=== PATIENT | male | born 1935 | race African-American/Black ===

== ENCOUNTER 2019-03-19 08:40 | Observation (INO) | payer OTHER ==
[~2019-03-19] VITALS: Ht 182.9 cm; Wt 52.6 kg
[~2019-03-19 08:40] MED LIST: CIPROFLOXACIN500 MG PO; CLARITIN10 MG PO; COMINH INH; FLO4 PO; LAC PO; PYR100 PO; QVAR0.04 MG/Ac IH
[2019-03-19 08:56] VITALS: Ht 182.9 cm; Wt 52.6 kg
--- NOTE | 2019-03-19 10:08 | NUR ---
PT AWARE OF NEEDED URINE SPECIMEN. PT AMBULATED TO BR WITH STEADY GAIT W/ FAMILY MEMEBER AT PT'S SIDE TO PREVENT FALL.
[2019-03-19 10:21] LABS: ALBUMIN 3.1 g/dL (3.4-5.0); ALKALINE PHOSPHATASE 66 U/L (46-116); ALT/SGPT 25 U/L (16-63); AST/SGOT 28 U/L (15-37); BILIRUBIN TOTAL 0.8 mg/dL (0.20-1.00); CALCIUM 9.3 mg/dL (8.5-10.1); CHLORIDE SERUM 106 mmol/L (98-107); CREATININE SERUM 1.2 mg/dL (0.7-1.3); GLUCOSE SERUM 95 mg/dL (74-106); POTASSIUM SERUM 4.7 mmol/L (3.5-5.1); SODIUM SERUM 141 mmol/L (136-145); TOTAL PROTEIN, SERUM 6.8 g/dL (6.4-8.2)
[2019-03-19 11:32] LABS: BAND NEUTROPHIL 4 % (0-10); BASOPHIL 0 % (0-2); MONOCYTE 3 % (0-7); SEGMENTED NEUTROPHILS 86 % (37-75)
[2019-03-19 11:33] LABS: PLATELET MORPHOLOGY PLATELETS DECREASED; rbc morphology (normal/abnorm) ABNORMAL (NORMAL)
[2019-03-19 11:54] LABS: PLATELET COUNT 173 x10^3mcL (130-400)
[2019-03-19 11:57] LABS: RED CELL DISTRIBUTION WIDTH 14.8 % (11.5-14.5)
--- NOTE | 2019-03-19 11:58 | NUR ---
PT RESTING COMFORTABLY IN BED, BREATHING EASY AND UNLABORED. NO CHANGE IN STATUS. WILL CONTINUE TO MONITOR.
[2019-03-19 12:02] LABS: UA SPECIFIC GRAVITY 1.015 (1.005-1.035)
[2019-03-19 12:03] LABS: microscopic required? YES; urine erythrocyte TRACE (NEGATIVE)
--- NOTE | 2019-03-19 14:46 | NUR ---
PT ADMITTED (TELE, ROOM#250B) - REPORT CALLED TO KHALIDA HOWARD. OPPORTUNITY GIVEN TO ASK QUESTIONS. PT BEING TRANSPORTED TO FLOOR BY RN AT THIS TIME. NO CHANGE IN STATUS. PT AAOX4, VSS, BREATHING EASY AND UNLABORED, SPEAKS IN FULL CLEAR SENTENCES, AND IN NO OBVIOUS DISTRESS.
[2019-03-19 15:21] VITALS: BP 109/70
--- NOTE | 2019-03-19 15:34 | NUR ---
RECEIVED PT FROM ER, PT ADMIT FOR SEPSIS, LEUKOCYTOSIS, PT IS A/O X4, VERBAL RESPONSIVE, SLOW SPEECH, LUNG SOUND CLEAR BILATERAL, NO COUGH, NO SOB. PT IS ON TELE 15, NSR, DENY ANY CHEST PAIN OR DISCOMFORT, BOWEL SOUND PRESENT ALL 4 QUADRANTS ,NO DISTENTION, NO TENDER. PEDAL PULSE PRESENT BOTH FEET, NO EDEMA, IV AT RIGHT AC, NO LEAKING, NO INFILTRATION. PT IS ABLE TO AMBULATE WITH ASSIST. BUT C/O GENERALIZED WEAKNESS SINCE YESTERDAY. ALL ADLS ASSIST, ALL NEED MET, CALL LIGHT IN REACH, WILL CONTINUE TO MONITOR.
[2019-03-19 16:06] VITALS: BP 109/70
--- NOTE | 2019-03-19 18:36 | NUR ---
PATIENT IS RESTING IN BED AND STATES FEELING LITTLE BIT BETTER AND WANTED TO REST MORE. IVF IS INFUSING AT 80ML/HR VIA IV SITE AT [facility].
--- NOTE | 2019-03-19 20:00 | NUR ---
PT A/A/O X4. DENIES DIZZINESS AND HEADACHE. BREATH SOUNDS CLEAR. BREATHING EVEN AND UNLABORED ON ROOM AIR. DENIES CHEST PAIN AND PRESSURE. BOWEL SOUNDS ACTIVE. NO C/O N/V AND ABD PAIN. IV INTACT ON THE RAC INFUSING WITH NS AT 80 ML/HR. MADE PT COMFORTABLE. PLACED CALL LIGHT WITH IN REACH. WILL CONTINUE TO MONITOR.
[2019-03-19 20:30] VITALS: BP 104/63
--- NOTE | 2019-03-19 20:30 | NUR ---
PT C/O HEADACHE. GAVE PT TYLENOL PO. PT TOLERATED IT WELL. WILL CONTINUE TO MONITOR.
--- NOTE | 2019-03-20 01:43 | NUR ---
PT COMPLAINING OF BACKPAIN AND REQUESTING TYLENOL. GIVEN TYLENOL 65OMG ORDERED PO. CARD READER SHOWS SHORT RUN OF SVT VS PAT. PT AWAKE DUE TO BACKPAIN. DENIES ANY CHEST PAIN. MARIAJOSE 118/67, HR 79/MIN, RR 20 /MIN. CALL LIGHT WITHIN REACHED. WILL MONITOR CLOSELY.
--- NOTE | 2019-03-20 01:48 | NUR ---
PT ASYMPTOMATIC. CALL LIGHT WITHIN REACHED.
[2019-03-20 05:30] VITALS: BP 124/64
--- NOTE | 2019-03-20 06:44 | NUR ---
PT RESTING WITH EYES CLOSED. EASILY AROUSABLE WITH VERBAL STIMULI. NO C/O PAIN THUS FAR. NO FEVER NOTED, TEMP 97.4. IV INTACT AND INFUSING ORDERED. MADE PT COMFORTABLE. WILL ENDORSE TO THE AM NURSE ACCORDINGLY.
--- NOTE | 2019-03-20 07:05 | NUR ---
RECIECED PT RESTING IN BED WITH NO C/O PAIN OR DISTRESS. A/OX4 WITH NO KOLB OR DIZZINESS. TELE#15 CONNECTED TO PT, DENIES ANY CP OR PRESSURE. LUNGS CTAB, NO SOB. NS 80ML/HR RUNNING IN RAC, IV CDI AND PATENT. SAFERY PRECAUTIONS IN PLACE, CALL LIGHT WITHIN REACH, WILL MONITOR.
--- NOTE | 2019-03-20 08:36 | NUR ---
TYLENOL GIVEN PER EMAR FOR C/O 09/04 BACK PAIN , WILL REASSESS
[2019-03-20 08:45] VITALS: BP 122/78
[2019-03-20 11:55] VITALS: BP 131/80; BP 132/78
--- NOTE | 2019-03-20 12:47 | NUR ---
TYLENOL GIVEN PER EMAR FOR C/O 6/ KOLB, WILL REASSESS.
[2019-03-20 13:15] LABS: BASOPHIL % 0.2 % (0-2); PLATELET COUNT 166 x10^3mcL (130-400)
[2019-03-20 13:23] LABS: RED CELL DISTRIBUTION WIDTH 15.1 % (11.5-14.5)
[2019-03-20 15:07] VITALS: BP 131/80
[2019-03-20 15:51] LABS: CARBON DIOXIDE 30.5 mmol/L (21-32); CHLORIDE SERUM 104 mmol/L (98-107); GLUCOSE SERUM 76 mg/dL (74-106); POTASSIUM SERUM 4.1 mmol/L (3.5-5.1); SODIUM SERUM 140 mmol/L (136-145)
[2019-03-20 15:52] LABS: CALCIUM 9.7 mg/dL (8.5-10.1)
--- NOTE | 2019-03-20 16:15 | NUR ---
PT STABLE TO DISCHARGE PER MD ORDER. ALL DISCHARGFE EDUCATION, INSTRUCTIONS, AND PRESCRIPTIONS GIVEN TO PT, PT VERBALIZES UNDERSTANDING. D/C FORMS SIGNED BY PT. ID BAND REMOVED AND IV REMOVED WITH CATHETER INTACT. NO REDNESS OR INFLAMMATION NOTED TO SITE. PT ESCORTED DOWN TO LOBBY VIA WC BY DRIER UNLOADER AND FAMILY AT SIDE. ALL PERSONAL BELONGINGS IN HAND.
== END 2019-03-20 16:59 | disposition home or self-care (01) ==
LOC: ED 08:40 → DU 13:48
PROVIDERS: Emergency Medicine; ADMIT Internal Medicine Pulmonary Disease
DX: R50.9 Fever, unspecified (principal); N40.0 Benign prostatic hyperplasia without lower urinary tract symptoms; D86.9 Sarcoidosis, unspecified; Z86.73 Personal history of transient ischemic attack (TIA), and cerebral infarction without residual deficits; Z23 Encounter for immunization
CPT/HCPCS: 87804; 90732; 97116-GP; G0378; J0456; J0696; J7030; J7060; Q0092

== ENCOUNTER 2019-03-25 07:45 | Inpatient (IN) | payer OTHER ==
[~2019-03-25] VITALS: Ht 180.3 cm; Wt 52.0 kg
[2019-03-25 07:51] VITALS: Ht 180.3 cm; Wt 52.0 kg
[2019-03-25 08:50] LABS: BASOPHIL % 0.4 % (0-2); PLATELET COUNT 278 x10^3mcL (130-400); RED CELL DISTRIBUTION WIDTH 14.4 % (11.5-14.5)
[2019-03-25 09:00] LABS: CALCIUM 10.4 mg/dL (8.5-10.1); CHLORIDE SERUM 103 mmol/L (98-107); CREATININE SERUM 0.9 mg/dL (0.7-1.3); GLUCOSE SERUM 86 mg/dL (74-106); POTASSIUM SERUM 4.6 mmol/L (3.5-5.1); SODIUM SERUM 139 mmol/L (136-145)
[2019-03-25 09:05] LABS: ALBUMIN 3.1 g/dL (3.4-5.0); ALKALINE PHOSPHATASE 81 U/L (46-116); ALT/SGPT 39 U/L (16-63); AST/SGOT 32 U/L (15-37); BILIRUBIN TOTAL 0.7 mg/dL (0.20-1.00); LIPASE 104 IU/L (73-393); TOTAL PROTEIN, SERUM 8.4 g/dL (6.4-8.2)
[2019-03-25 10:12] LABS: microscopic required? NO
[2019-03-25 10:17] LABS: UA SPECIFIC GRAVITY 1.015 (1.005-1.035); urine erythrocyte NEGATIVE (NEGATIVE)
[2019-03-25 15:52] VITALS: BP 115/64
[2019-03-25 17:10] VITALS: BP 108/69
[2019-03-25 18:06] VITALS: BP 115/64
[2019-03-25 21:32] VITALS: BP 104/63
[2019-03-26 06:09] VITALS: BP 105/67
[2019-03-26 06:56] LABS: BASOPHIL % 0.2 % (0-2); PLATELET COUNT 290 x10^3mcL (130-400)
[2019-03-26 07:15] LABS: CALCIUM 9.6 mg/dL (8.5-10.1); CARBON DIOXIDE 28.5 mmol/L (21-32); CHLORIDE SERUM 104 mmol/L (98-107); GLUCOSE SERUM 81 mg/dL (74-106); POTASSIUM SERUM 4.7 mmol/L (3.5-5.1); SODIUM SERUM 140 mmol/L (136-145)
[2019-03-26 07:38] VITALS: BP 121/66
[2019-03-26 07:45] LABS: RED CELL DISTRIBUTION WIDTH 14.6 % (11.5-14.5)
[2019-03-26 11:54] VITALS: BP 112/66
[2019-03-26] MEDS ORDERED: FLE10 PO ×2 (14:06→14:08)
[2019-03-26] MEDS ORDERED: NOR10T PO (14:07)
[2019-03-26 16:07] VITALS: BP 101/62
[2019-03-26 19:31] VITALS: BP 107/58
[2019-03-27 04:34] VITALS: BP 112/69
[2019-03-27 06:26] LABS: CALCIUM 9.3 mg/dL (8.5-10.1); CARBON DIOXIDE 29.5 mmol/L (21-32); CHLORIDE SERUM 103 mmol/L (98-107); CREATININE SERUM 0.8 mg/dL (0.7-1.3); GLUCOSE SERUM 84 mg/dL (74-106); POTASSIUM SERUM 4.3 mmol/L (3.5-5.1); SODIUM SERUM 139 mmol/L (136-145)
[2019-03-27 08:00] VITALS: BP 115/74
[2019-03-27 12:30] VITALS: BP 115/74
== END 2019-03-27 14:32 | disposition home or self-care (01) | DRG 552 ==
LOC: ED 07:45 → DU 13:29
PROVIDERS: Specialist; ADMIT Internal Medicine Pulmonary Disease
DX: M51.36 Other intervertebral disc degeneration, lumbar region (principal); J44.9 Chronic obstructive pulmonary disease, unspecified; G35 Multiple sclerosis; D86.9 Sarcoidosis, unspecified; N40.0 Benign prostatic hyperplasia without lower urinary tract symptoms; Z86.73 Personal history of transient ischemic attack (TIA), and cerebral infarction without residual deficits
CPT/HCPCS: 83880; 97110-GP; 97116-GP; 97530-GP; G0378; J1644; J1885; J2270; J2405; J7620; J7626

== ENCOUNTER 2019-04-04 16:50 | Emergency (ER) | payer OTHER ==
[~2019-04-04] VITALS: Ht 177.8 cm; Wt 59.0 kg
[~2019-04-04 16:50] MED LIST changes: +FLE10 PO; +NOR10T PO
[2019-04-04 17:12] VITALS: Ht 177.8 cm; Wt 59.0 kg
[2019-04-04 17:25] LABS: microscopic required? NO
[2019-04-04 17:36] LABS: UA SPECIFIC GRAVITY <=1.005 (1.005-1.035); urine erythrocyte NEGATIVE (NEGATIVE)
[2019-04-04 20:58] VITALS: BP 132/69
== END 2019-04-04 21:14 | disposition short-term general hospital (02) ==
LOC: ED 16:50
PROVIDERS: Emergency Medicine
DX: N40.0 Benign prostatic hyperplasia without lower urinary tract symptoms (principal); J45.909 Unspecified asthma, uncomplicated